=== PATIENT | male | born 1955 | race Caucasian/White ===

== ENCOUNTER → 2018-02-07 | Day surgery (SDC) | payer OTHER ==
--- NOTE | 2018-02-07 15:23 | RADIOLOGY REPORT (SQ) ---
EXAM DESCRIPTION: ARTHRO SHOULDER INJECTION; FLUORO/NEEDLE PLACEMENT COMPLETED DATE/TIME: 02/07/2018 3:03 pm REASON FOR STUDY: S43.401A UNSPECIFIED SPRAIN OF RIGHT SHOULDER JOINT, INIT ENCNTR S43.401A UNSPECI FIED SPRAIN OF RIGHT SHOULDER JOINT, INIT EN COMPARISON: None. FLUOROSCOPY TIME: 8 seconds 1 images saved to PACS. LIMITATIONS: None. PROCEDURE: Procedure, risks, benefits and alternative explained to patient who then gave written con sent. The right shoulder was marked and a time-out was called for correct marking verification. Pos terior entry site marked using fluoroscopic guidance. Shoulder prepped and draped using agricultural engineering technologist nique. Local anesthesia achieved using 1% lidocaine injection. 22 gauge spinal needle introduced int o the joint space under direct fluoroscopic visualization. Non-ionic contrast instilled to confirm i ntra-articular position. Additional dilute non-ionic contrast instilled. Needle removed and entry s ite covered with sterile bandage. No immediate complications noted. TECHNIQUE: Digital images acquired during fluoroscopy and stored on PACS. Patient immediately take n to the CT suite for additional imaging. INJECTION LOCATION: Posterior right shoulder. CONTRAST TYPE AND AMOUNT: 1 cc Omnipaque 300 followed by 10 cc Omnipaque saline mixture. IMPRESSION: SUCCESSFUL NEEDLE PLACEMENT AND INJECTION FOR RIGHT SHOULDER CT ARTHROGRAM USING POSTERI OR APPROACH. COMMENT: Quality ID 145: Final reports for procedures using fluoroscopy that document radiation exp osure indices, or exposure time and number of fluorographic images (if radiation exposure indices are not available) TECHNICAL DOCUMENTATION: JOB ID: [id number] [employer]- All Rights Reserved Reading location - IP/workstation name: [facility]
--- NOTE | 2018-02-07 15:23 | RADIOLOGY REPORT (SQ) ---
EXAM DESCRIPTION: ARTHRO SHOULDER INJECTION; FLUORO/NEEDLE PLACEMENT COMPLETED DATE/TIME: 02/07/2018 3:03 pm REASON FOR STUDY: S43.401A UNSPECIFIED SPRAIN OF RIGHT SHOULDER JOINT, INIT ENCNTR S43.401A UNSPECI FIED SPRAIN OF RIGHT SHOULDER JOINT, INIT EN COMPARISON: None. FLUOROSCOPY TIME: 8 seconds 1 images saved to PACS. LIMITATIONS: None. PROCEDURE: Procedure, risks, benefits and alternative explained to patient who then gave written con sent. The right shoulder was marked and a time-out was called for correct marking verification. Pos terior entry site marked using fluoroscopic guidance. Shoulder prepped and draped using industrial hygiene technician nique. Local anesthesia achieved using 1% lidocaine injection. 22 gauge spinal needle introduced int o the joint space under direct fluoroscopic visualization. Non-ionic contrast instilled to confirm i ntra-articular position. Additional dilute non-ionic contrast instilled. Needle removed and entry s ite covered with sterile bandage. No immediate complications noted. TECHNIQUE: Digital images acquired during fluoroscopy and stored on PACS. Patient immediately take n to the CT suite for additional imaging. INJECTION LOCATION: Posterior right shoulder. CONTRAST TYPE AND AMOUNT: 1 cc Omnipaque 300 followed by 10 cc Omnipaque saline mixture. IMPRESSION: SUCCESSFUL NEEDLE PLACEMENT AND INJECTION FOR RIGHT SHOULDER CT ARTHROGRAM USING POSTERI OR APPROACH. COMMENT: Quality ID 145: Final reports for procedures using fluoroscopy that document radiation exp osure indices, or exposure time and number of fluorographic images (if radiation exposure indices are not available) TECHNICAL DOCUMENTATION: JOB ID: [id number] [employer] All Rights Reserved Reading location - IP/workstation name: [email or web address]
--- NOTE | 2018-02-08 08:47 | RADIOLOGY REPORT (SQ) ---
EXAM DESCRIPTION: CT RT UPPER EXTREMITY WITH COMPLETED DATE/TIME: 02/07/2018 2:50 pm REASON FOR STUDY: S43.401A UNSPECIFIED SPRAIN OF RIGHT SHOULDER JOINT, INIT ENCNTR S43.401A UNSPECI FIED SPRAIN OF RIGHT SHOULDER JOINT, INIT EN COMPARISON: None. TECHNIQUE: [facility] with reformatted oblique coronal and ob lique sagittal imaging windowed for bone and soft tissues. All CT scanners at this facility use dose modulation, iterative reconstruction, and/or weight based d osing when appropriate to reduce radiation dose to as low as reasonably achievable (ALARA). [facility]: Dose Right [facility]: CareDose [facility]: Dose Right [facility]: Teradose 4D [facility]: [employer] RADIATION DOSE: CT Rad equipment meets quality standard of care and radiation dose reduction techniq ues were employed. CTDIvol: 23.7 mGy. DLP: 595 mGy-cm. mGy. LIMITATIONS: None. FINDINGS: Type 2 acromion with bulky acromioclavicular joint hypertrophy, with synovial thickening. Intra-articular contrast is worked its way into the distal AC joint from the subacromial/subdeltoid bursa. There is narrowing of the subacromial space. These changes are best shown on sagittal images 42-53. A small full-thickness tear in the distal infraspinatus tendon is present with adjacent bony sclerosi s and subcortical cyst formation in the posterior right humeral head greater tuberosity. This is bes t shown on sagittal images 60-65, coronal image 26, and axial image 22. Supraspinatus, subscapularis are intact. Intra-articular long head biceps tendon normal size. No labral tear or paralabral cyst. Upper airway in the field of view, right upper lobe, right supraclavicular and axillary soft tissues are unremarkable. Moderate bilateral foraminal narrowing at C6-7. Normal bone density without lytic or blastic lesions. No fracture IMPRESSION: Bulky acromioclavicular joint hypertrophy with narrowing of the subacromial is vein Small full-thickness tear posterior aspect distal infraspinatus tendon TECHNICAL DOCUMENTATION: JOB ID: [id number] Quality ID # [id number]: Final reports with documentation of one or more dose reduction techniques (e.g., Au tomated exposure control, adjustment of the mA and/or kV according to patient size, use of iterative reconstruction technique) 2010 [employer]- All Rights Reserved Reading location - IP/workstation name: [email or web address]
== END ==
LOC: RAD 13:30
PROVIDERS: ATTEND Orthopaedic Surgery
DX: S43.401A Unspecified sprain of right shoulder joint, initial encounter (principal); X58.XXXA Exposure to other specified factors, initial encounter
CPT/HCPCS: 23350; 77002